=== PATIENT | male | born 1935 | race Caucasian/White ===

== ENCOUNTER 2016-06-07 19:15 | Emergency (ER) | payer MEDICARE ==
[~2016-06-07 19:15] MED LIST: ARICEPT10 MG PO; BENZTROPINE MESY1 MG PO; COMPAZINE5 MG PO; FEOSOL ELI220 MG/5 M PO; FLOMAX 0.4 MG0.4 MG PO; LOPRESSOR 25 MG25 MG PO; MULTIVITAMINS1 EAC2 PO; NAMENDA10 MG PO; OSCAL 500 + D TA1 EA PO; PROSCAR 5 MG TAB5 MG PO; REQUIP1 MG PO; RISPERDAL2 MG PO; RISPERDAL4 MG PO; SINEMET 25-1001 EACH PO; SINGULAIR10 MG PO; TRAZODONE HCL100 MG PO
[2016-06-07 20:46] LABS: HEMOGLOBIN 14.1 gm/dl (14.0-17.5); RED BLOOD COUNT 4.73 M/UL (4.20-5.50); WHITE BLOOD COUNT 7.3 K/UL (4.5-11.0)
[2016-06-07 21:19] LABS: BUN/CREATININE RATIO 23 (0-10)
== END 2016-06-08 02:38 | disposition short-term general hospital (02) ==
LOC: ER1 19:15
PROVIDERS: Family Medicine
DX: K92.2 Gastrointestinal hemorrhage, unspecified (principal); N39.0 Urinary tract infection, site not specified; I10 Essential (primary) hypertension; J44.9 Chronic obstructive pulmonary disease, unspecified; G30.9 Alzheimer's disease, unspecified; F02.80 Dementia in other diseases classified elsewhere, unspecified severity, without behavioral disturbance, psychotic disturbance, mood disturbance, and anxiety; Z88.1 Allergy status to other antibiotic agents
CPT/HCPCS: 36415; 51702; 80053; 81001; 82150; 82272; 82550; 82553; 83690; 83874; 84484; 85025; 85610; 85730; 86850; 86900; 86901; 93005; 96361; 96365; 96375; 99285; C9113; J0696; J7050; Q9962

== ENCOUNTER 2016-07-18 19:59 | Observation (INO) | payer MEDICARE ==
[~2016-07-18] VITALS: Ht 182.9 cm; Wt 69.1 kg
[2016-07-18 23:12] LABS: HEMOGLOBIN 13.7 gm/dl (14.0-17.5); RED BLOOD COUNT 4.57 M/UL (4.20-5.50)
[2016-07-18 23:27] LABS: BUN/CREATININE RATIO 21 (0-10)
[2016-07-19] MEDS ORDERED: CARBIDOPA-LEVO1 EAC6 PO (02:31)
[2016-07-19] MEDS ORDERED: RISPERDAL2 MG PO (02:31)
[2016-07-19] MEDS ORDERED: TRAZODONE HCL50 MG PO (02:32)
[2016-07-19] MEDS ORDERED: DULCOLAX10 MG PR (02:33)
[2016-07-19] MEDS ORDERED: MILK OF MAGNESI30 ML PO (02:34)
[2016-07-19] MEDS ORDERED: LOPERAMIDE2 MG PO (02:34)
[2016-07-19] MEDS ORDERED: MAPAP500 M1 PO (02:35)
[2016-07-19] MEDS ORDERED: LIDEX CREAM 0.030 GM TOP (02:37)
[2016-07-19] MEDS ORDERED: MIRALAX PACK 171 PKT PO (02:38)
[2016-07-19] MEDS ORDERED: ABILIFY 5 MG TAB5 MG PO (02:40)
[2016-07-19] MEDS ORDERED: FERROUS SU300 MG/5 M PO (02:40)
[2016-07-19] MEDS ORDERED: LORAZEPAM0.5 MG PO (02:41)
[2016-07-19] MEDS ORDERED: OMEPRAZOLE20 MG PO (02:41)
== END 2016-07-19 20:12 ==
LOC: ER1 19:59 → MED SURG 4 07-19 01:05 → ZEROF 07-19 01:05 → MED SURG 4 07-19 02:14
PROVIDERS: Family Medicine; ADMIT Hospitalist
DX: R91.8 Other nonspecific abnormal finding of lung field (principal); K21.9 Gastro-esophageal reflux disease without esophagitis; F41.9 Anxiety disorder, unspecified; N40.0 Benign prostatic hyperplasia without lower urinary tract symptoms; G20 Parkinson's disease; F02.80 Dementia in other diseases classified elsewhere, unspecified severity, without behavioral disturbance, psychotic disturbance, mood disturbance, and anxiety; G25.81 Restless legs syndrome; Z87.19 Personal history of other diseases of the digestive system; Z79.899 Other long term (current) drug therapy; Z79.1 Long term (current) use of non-steroidal anti-inflammatories (NSAID); Z79.82 Long term (current) use of aspirin; Z79.891 Long term (current) use of opiate analgesic; Z88.1 Allergy status to other antibiotic agents; Z66 Do not resuscitate
CPT/HCPCS: 36415; 71010; 80053; 85025; 86140; 87040; 92610; 99284; G0378

== ENCOUNTER 2016-08-08 19:38 | Emergency (ER) | payer MEDICARE ==
[~2016-08-08 19:38] MED LIST changes: +ABILIFY 5 MG TAB5 MG PO; +CARBIDOPA-LEVO1 EAC6 PO; +DULCOLAX10 MG PR; +FERROUS SU300 MG/5 M PO; +LIDEX CREAM 0.030 GM TOP; +LOPERAMIDE2 MG PO; +LORAZEPAM0.5 MG PO; +MAPAP500 M1 PO; +MILK OF MAGNESI30 ML PO; +MIRALAX PACK 171 PKT PO; +OMEPRAZOLE20 MG PO; +TRAZODONE HCL50 MG PO
[2016-08-08 20:47] LABS: HEMOGLOBIN 14.3 gm/dl (14.0-17.5); RED BLOOD COUNT 4.87 M/UL (4.20-5.50); WHITE BLOOD COUNT 9.7 K/UL (4.5-11.0)
[2016-08-08 21:07] LABS: BUN/CREATININE RATIO 17 (0-10)
== END 2016-08-09 00:50 | disposition home or self-care (01) ==
LOC: ER1 19:38
PROVIDERS: Emergency Medicine
DX: K92.0 Hematemesis (principal); G20 Parkinson's disease; F02.80 Dementia in other diseases classified elsewhere, unspecified severity, without behavioral disturbance, psychotic disturbance, mood disturbance, and anxiety; I10 Essential (primary) hypertension; D64.9 Anemia, unspecified; F29 Unspecified psychosis not due to a substance or known physiological condition; Z66 Do not resuscitate; Z88.1 Allergy status to other antibiotic agents
CPT/HCPCS: 36415; 80053; 84484; 85025; 85610; 85730; 86850; 86900; 86901; 86920; 93005; 96365; 96366; 96376; 99285; C9113

== ENCOUNTER → 2016-08-10 | Outpatient (CLI) | payer MEDICARE | LOC: RAD 08-03 08:30 | DX: R13.10 Dysphagia, unspecified (principal); K21.9 Gastro-esophageal reflux disease without esophagitis | CPT/HCPCS: 74230; 92611-GN ==